=== PATIENT | female | born 1965 | race Caucasian/White ===

== ENCOUNTER → 2017-06-16 | Outpatient (CLI) | payer OTHER | LOC: FIMAGING 07:31 | PROVIDERS: ATTEND Family Medicine | DX: Z12.31 Encounter for screening mammogram for malignant neoplasm of breast (principal) | CPT/HCPCS: G0202 ==

== ENCOUNTER → 2018-09-21 | Outpatient (CLI) | payer OTHER | LOC: FIMAGING 11:50 | PROVIDERS: ATTEND Orthopaedic Surgery | DX: M79.662 Pain in left lower leg (principal); M79.89 Other specified soft tissue disorders; S83.242D Other tear of medial meniscus, current injury, left knee, subsequent encounter ==